=== PATIENT | male | born 1995 | race Hispanic/Latino ===

== ENCOUNTER 2018-08-02 22:53 | Emergency (ER) | payer MEDICAID, OTHER ==
[2018-08-02] MEDS ORDERED: KETOROLAC TROMETHAMINE 60 MG/2 ML VIAL ONE (23:17)
[2018-08-02] MEDS ORDERED: ACETAMINOPHEN-CODEINE 300/30MG TAB ONE (23:17)
== END 2018-08-03 00:32 | disposition home or self-care (01) ==
LOC: EDH 22:53
DX: S22.31XA Fracture of one rib, right side, initial encounter for closed fracture (principal); Z72.0 Tobacco use; W14.XXXA Fall from tree, initial encounter; Y93.39 Activity, other involving climbing, rappelling and jumping off; Y92.89 Other specified places as the place of occurrence of the external cause; Y99.8 Other external cause status
CPT/HCPCS: 71101; 96372; 99283; J1885; 71100

== ENCOUNTER 2018-10-01 10:52 | Emergency (ER) | payer OTHER ==
[2018-10-01] MEDS ORDERED: SIMETHICONE 80 MG TAB.CHEW ONE (11:13)
[2018-10-01] MEDS ORDERED: DICYCLOMINE HCL 20 MG TAB ONE (11:13)
[2018-10-01] MEDS ORDERED: ONDANSETRON ODT 4 MG TAB ONE (11:13)
[2018-10-01 11:46] LABS: CREATININE 0.9 mg/dL (0.5-1.5); POTASSIUM 4.1 mmol/L (3.5-5.1)
[2018-10-01 11:52] LABS: ALBUMIN 3.9 g/dL (3.5-5.0); BILIRUBIN,TOTAL 0.4 mg/dL (0.2-1.0); TOTAL PROTEIN, SERUM 7.3 g/dL (6.0-8.3)
[2018-10-01 11:54] LABS: BASOPHILS % (AUTO) 0.5 % (0.0-5.0); EOSINOPHILS % (AUTO) 1.8 % (0.0-8.0); HEMATOCRIT 42.3 % (42-54); LYMPHOCYTES % (AUTO) 24.8 % (21.0-51.0); MEAN CORPUSCULAR HEMOGLOBIN 32.4 pg (27.0-33.0); MEAN CORPUSCULAR HGB CONC 34.1 g/dL (32.0-36.0); MEAN CORPUSCULAR VOLUME 95.2 fL (79-99); NEUTROPHILS % (AUTO) 66.9 % (40.0-77.0); PLATELET COUNT (AUTO) 168 K/uL (130-400); RED BLOOD CELL COUNT(AUTO) 4.45 MIL/uL (4.50-6.20); RED CELL DISTRIBUTION WIDTH 13.7 % (11.0-15.5); WHITE BLOOD COUNT (AUTO) 11.2 K/uL (4.8-10.8)
== END 2018-10-01 12:16 | disposition home or self-care (01) ==
LOC: EDH 10:52
DX: R10.84 Generalized abdominal pain (principal); R11.2 Nausea with vomiting, unspecified; R19.7 Diarrhea, unspecified
CPT/HCPCS: 36415; 80053; 83690; 85025

== ENCOUNTER 2018-10-13 10:00 | Emergency (ER) | payer SELFPAY ==
[2018-10-13] MEDS ORDERED: KETOROLAC TROMETHAMINE 60 MG/2 ML VIAL ONE (10:18)
[2018-10-13] MEDS ORDERED: ORPHENADRINE CITRATE 30 MG/ML ML ONE (10:18)
[2018-10-13 10:28] LABS: APPEARANCE,URINE Clear (CLEAR); BILIRUBIN,URINE Negative (NEGATIVE); COLOR,URINE Yellow (YELLOW); GLUCOSE, URINE (UA) Negative (NEGATIVE); KETONES,URINE Negative (NEGATIVE); LEUKOCYTE ESTERASE ,URINE Negative (NEGATIVE); NITRATE,URINE Negative (NEGATIVE); OCCULT BLOOD,URINE Negative (NEGATIVE); PH,URINE >=9.0 (5.0-8.0); PROTEIN,URINE Negative (NEGATIVE); UROBILINOGEN,URINE 0.2 mg/dL (0.2-1.0)
== END 2018-10-13 11:28 | disposition home or self-care (01) ==
LOC: EDH 10:00
DX: S39.012A Strain of muscle, fascia and tendon of lower back, initial encounter (principal); X50.0XXA Overexertion from strenuous movement or load, initial encounter; Y93.89 Activity, other specified; Y92.89 Other specified places as the place of occurrence of the external cause; Y99.8 Other external cause status
CPT/HCPCS: 72100; 81003; 96372 ×2; 99285; J1885; J2360